=== PATIENT | male | born 1965 | race African-American/Black ===

== ENCOUNTER 2020-11-29 05:20 | Inpatient (IN) | payer MEDICAID ==
[~2020-11-29] VITALS: Ht 170.2 cm; Wt 74.8 kg
[2020-11-29] MEDS ORDERED: MAGNESIUM CITRATE 300ML SOLUTION PO ONE (06:30)
[2020-11-29] MEDS ORDERED: SODIUM CHLORIDE 0.9% 1,000 ML IV ONE ×2 (06:30→07:30)
[2020-11-29] MEDS ORDERED: MAGNESIUM HYDROXIDE 400MG/5ML 30ML UDC PO ONE (06:30)
[2020-11-29 06:55] LABS: BASOPHILS % 0.3 % (0.0-2.0); CHLORIDE 101 mEq/L (98-107); EOSINOPHILS % 0.3 % (0.0-5.0); HEMATOCRIT. 41.7 % (42.0-52.0); HEMOGLOBIN. 13.7 g/dL (14.0-18.0); LYMPHOCYTES % 15.4 % (20.0-50.0); MEAN CORPUSCULAR HEMOGLOBIN 29.1 pg (28.0-32.0); MEAN CORPUSCULAR VOLUME 88.3 fL (80.0-94.0); MEAN PLATELET VOLUME 9.2 fl (7.4-10.4); MONOCYTES % 9.6 % (2.0-8.0); NEUTROPHILS % 74.4 % (40.0-76.0); PLATELET 164 x1000/uL (130-400); RED BLOOD CELL COUNT 4.72 mill/uL (4.7-6.1); RED CELL DISTRIBUTION WIDTH 14.6 % (11.6-14.6)
[2020-11-29 07:06] LABS: PROTHROMBIN TIME 60.9 sec (9.6-11.0)
[2020-11-29 07:17] LABS: INR 6.6
[2020-11-29] MEDS ORDERED: NA PHOS,M-B/NA PHOS,DI-BA ENEMA 118ML PR ONE (07:30)
[2020-11-29] MEDS ORDERED: ACETAMINOPHEN 325MG TABLET PO PRN (12:45)
[2020-11-29] MEDS ORDERED: ONDANSETRON HCL 4MG/2ML INJ IV PRN (12:45)
[2020-11-29] MEDS ORDERED: DIPHENHYDRAMINE 50MG/ML VIAL IV PRN (12:45)
[2020-11-29] MEDS ORDERED: CLONIDINE 0.1MG TABLET PO PRN (12:45)
[2020-11-29] MEDS ORDERED: IPRATROPIUM/ALBUTEROL 0.5-3(2.5)MG/3ML NEB HHN PRN (12:45)
[2020-11-29] MEDS: SODIUM CHLORIDE 0.9% 1,000 ML IV SCH (13:43)
[2020-11-29] MEDS: MORPHINE SULFATE 2 MG/ML CPJ (NOT FOR IM USE) IV PRN ×2 (13:44→20:46)
[2020-11-29 15:33] VITALS: BP 146/90
[2020-11-29] MEDS ORDERED: CARV3.1242 PO (15:53)
[2020-11-29] MEDS ORDERED: FURO40TA5 PO (15:53)
[2020-11-29] MEDS ORDERED: ATOR10TA69 PO (15:53)
[2020-11-29] MEDS ORDERED: SPIR25TA6 PO (15:53)
[2020-11-29] MEDS ORDERED: WARF6TAB48 PO (15:53)
[2020-11-29] MEDS ORDERED: LISI20TA31 PO (15:53)
[2020-11-29] MEDS ORDERED: WARF4TAB71 PO (15:53)
[2020-11-29 16:00] VITALS: BP 119/68
[2020-11-29] MEDS: FUROSEMIDE 40MG TABLET PO SCH (17:24)
[2020-11-29] MEDS: ATORVASTATIN CALCIUM 10MG TABLET PO SCH (17:24)
[2020-11-29] MEDS: CARVEDILOL 3.125 MG TABLET PO SCH (17:24)
[2020-11-29 18:27] LABS: CLARITY URINE CLEAR (CLEAR); COLOR URINE YELLOW (YELLOW); KETONES URINE NEGATIVE (NEGATIVE); LEUKOCYTE ESTERASE URINE 1+ (NEGATIVE); NITRITE URINE NEGATIVE (NEGATIVE); OCCULT BLOOD URINE NEGATIVE (NEGATIVE); PROTEIN URINE NEGATIVE (NEGATIVE); SPECIFIC GRAVITY URINE 1.019 (1.005-1.030)
[2020-11-29 20:00] VITALS: BP 121/76
[2020-11-29] MEDS: LISINOPRIL 20MG TABLET PO SCH (20:45)
[2020-11-30] VITALS: BP 109/67
[2020-11-30] MEDS: SODIUM CHLORIDE 0.9% 1,000 ML IV SCH ×2 (00:44→14:09)
[2020-11-30] MEDS: MORPHINE SULFATE 2 MG/ML CPJ (NOT FOR IM USE) IV PRN ×5 (01:11→22:32)
[2020-11-30 04:00] VITALS: BP 122/60
[2020-11-30] MEDS: FUROSEMIDE 40MG TABLET PO SCH ×2 (06:16→17:45)
[2020-11-30] MEDS: GABAPENTIN 300MG CAPSULE PO SCH ×3 (06:16→21:19)
[2020-11-30 06:35] LABS: BASOPHILS % 0.3 % (0.0-2.0); EOSINOPHILS % 1.6 % (0.0-5.0); HEMATOCRIT. 40.1 % (42.0-52.0); HEMOGLOBIN. 13.1 g/dL (14.0-18.0); LYMPHOCYTES % 27.3 % (20.0-50.0); MEAN CORPUSCULAR HEMOGLOBIN 28.5 pg (28.0-32.0); MEAN CORPUSCULAR VOLUME 87.1 fL (80.0-94.0); MEAN PLATELET VOLUME 9.5 fl (7.4-10.4); MONOCYTES % 9.4 % (2.0-8.0); NEUTROPHILS % 61.4 % (40.0-76.0); PLATELET 140 x1000/uL (130-400); RED CELL DISTRIBUTION WIDTH 14.4 % (11.6-14.6)
[2020-11-30 06:52] LABS: PARTIAL THROMBOPLASTIN TIME 50.4 sec (23.4-31.0)
[2020-11-30 07:22] LABS: INR 4.1
[2020-11-30 07:24] LABS: CHLORIDE 105 mEq/L (98-107)
[2020-11-30 07:32] LABS: HDL CHOLESTEROL 56 mg/dL (40-59)
[2020-11-30 07:33] LABS: LDL CHOLESTEROL 62 mg/dL (5-100)
[2020-11-30 08:00] VITALS: BP 105/50
[2020-11-30] MEDS: BISACODYL 10MG SUPP PR SCH (08:53)
[2020-11-30] MEDS: ATORVASTATIN CALCIUM 10MG TABLET PO SCH ×2 (08:53→17:45)
[2020-11-30] MEDS: SPIRONOLACTONE 25MG TABLET PO SCH (08:53)
[2020-11-30] MEDS: CARVEDILOL 3.125 MG TABLET PO SCH ×2 (08:53→17:00)
[2020-11-30] MEDS: NA PHOS,M-B/NA PHOS,DI-BA ENEMA 118ML PR SCH (08:54)
[2020-11-30] MEDS: CEFTRIAXONE 1,000 MG in DEXTROSE 5% WATER 50 ML IV SCH (11:00)
[2020-11-30 11:56] VITALS: BP 105/59
[2020-11-30 16:00] VITALS: BP 114/60
[2020-11-30 20:00] VITALS: BP 116/64
[2020-11-30] MEDS ORDERED: DOCUSATE SODIUM 250MG CAPSULE PO PRN (21:15)
[2020-11-30] MEDS: LISINOPRIL 20MG TABLET PO SCH (21:19)
[2020-12-01] VITALS: BP 117/63
[2020-12-01] MEDS: SODIUM CHLORIDE 0.9% 1,000 ML IV SCH ×2 (01:58→14:20)
[2020-12-01] MEDS: MORPHINE SULFATE 2 MG/ML CPJ (NOT FOR IM USE) IV PRN ×5 (02:39→22:51)
[2020-12-01 04:00] VITALS: BP 109/60
[2020-12-01] MEDS: FUROSEMIDE 40MG TABLET PO SCH ×2 (05:51→17:13)
[2020-12-01] MEDS: GABAPENTIN 300MG CAPSULE PO SCH ×3 (05:51→22:52)
[2020-12-01 08:00] VITALS: BP 107/55
[2020-12-01] MEDS: NA PHOS,M-B/NA PHOS,DI-BA ENEMA 118ML PR SCH (08:10)
[2020-12-01] MEDS: BISACODYL 10MG SUPP PR SCH (08:10)
[2020-12-01] MEDS: ATORVASTATIN CALCIUM 10MG TABLET PO SCH ×2 (08:10→17:13)
[2020-12-01 08:39] LABS: BASOPHILS % 0.4 % (0.0-2.0); EOSINOPHILS % 2.7 % (0.0-5.0); HEMATOCRIT. 38.7 % (42.0-52.0); HEMOGLOBIN. 12.7 g/dL (14.0-18.0); INR 2.9; LYMPHOCYTES % 26.2 % (20.0-50.0); MEAN CORPUSCULAR HEMOGLOBIN 28.8 pg (28.0-32.0); MEAN PLATELET VOLUME 9.5 fl (7.4-10.4); MONOCYTES % 10.1 % (2.0-8.0); NEUTROPHILS % 60.6 % (40.0-76.0); PLATELET 138 x1000/uL (130-400); PROTHROMBIN TIME 28.5 sec (9.6-11.0); RED CELL DISTRIBUTION WIDTH 14.3 % (11.6-14.6)
[2020-12-01] MEDS: CARVEDILOL 3.125 MG TABLET PO SCH ×2 (08:40→17:13)
[2020-12-01] MEDS: SPIRONOLACTONE 25MG TABLET PO SCH (08:41)
[2020-12-01 09:02] LABS: CHLORIDE 107 mEq/L (98-107)
[2020-12-01] MEDS: CEFTRIAXONE 1,000 MG in DEXTROSE 5% WATER 50 ML IV SCH (09:32)
[2020-12-01 12:00] VITALS: BP 128/74
[2020-12-01] MEDS ORDERED: POLYETHYLENE GLYCOL 3350 (17GM) 1 DOSE PACK PO NR (12:00)
[2020-12-01] MEDS ORDERED: GABA-532 PO (12:15)
[2020-12-01] MEDS ORDERED: POLY119P2 MT (12:15)
[2020-12-01] MEDS ORDERED: BISA10SU62 RC (12:15)
[2020-12-01 16:00] VITALS: BP 120/65
[2020-12-01 20:00] VITALS: BP 121/69
[2020-12-02] VITALS: BP 150/87
[2020-12-02] MEDS: MORPHINE SULFATE 2 MG/ML CPJ (NOT FOR IM USE) IV PRN ×2 (03:20→04:48)
[2020-12-02] MEDS: SODIUM CHLORIDE 0.9% 1,000 ML IV SCH (03:23)
[2020-12-02 04:00] VITALS: BP 134/85
[2020-12-02] MEDS: FUROSEMIDE 40MG TABLET PO SCH (05:53)
[2020-12-02] MEDS: GABAPENTIN 300MG CAPSULE PO SCH (05:53)
[2020-12-02 08:00] VITALS: BP 110/69
[2020-12-02] MEDS: BISACODYL 10MG SUPP PR SCH (09:00)
[2020-12-02] MEDS: CARVEDILOL 3.125 MG TABLET PO SCH (09:00)
[2020-12-02] MEDS: NA PHOS,M-B/NA PHOS,DI-BA ENEMA 118ML PR SCH (09:00)
[2020-12-02] MEDS: ATORVASTATIN CALCIUM 10MG TABLET PO SCH (09:01)
[2020-12-02] MEDS: SPIRONOLACTONE 25MG TABLET PO SCH (09:01)
== END 2020-12-02 09:55 | disposition home or self-care (01) | DRG 247 ==
LOC: ER 05:20 → 5WST 10:49 → ENRESERV 13:48 → CANRESERV 13:48 → ENRESERV 13:51
PROVIDERS: ADMIT Internal Medicine; ATTEND Internal Medicine
DX: K56.7 Ileus, unspecified (principal); K56.600 Partial intestinal obstruction, unspecified as to cause; N39.0 Urinary tract infection, site not specified; N31.9 Neuromuscular dysfunction of bladder, unspecified; K82.4 Cholesterolosis of gallbladder; D68.9 Coagulation defect, unspecified; E78.5 Hyperlipidemia, unspecified; G82.20 Paraplegia, unspecified; I11.0 Hypertensive heart disease with heart failure; I25.10 Atherosclerotic heart disease of native coronary artery without angina pectoris; I42.0 Dilated cardiomyopathy; K59.2 Neurogenic bowel, not elsewhere classified; N20.0 Calculus of kidney; T45.515A Adverse effect of anticoagulants, initial encounter; I47.2 Ventricular tachycardia; I50.22 Chronic systolic (congestive) heart failure; I82.512 Chronic embolism and thrombosis of left femoral vein; Z79.01 Long term (current) use of anticoagulants; Z87.440 Personal history of urinary (tract) infections; Z87.442 Personal history of urinary calculi; Z95.810 Presence of automatic (implantable) cardiac defibrillator; W34.00XA Accidental discharge from unspecified firearms or gun, initial encounter; Z83.3 Family history of diabetes mellitus; Z82.49 Family history of ischemic heart disease and other diseases of the circulatory system; Z79.899 Other long term (current) drug therapy; Y92.89 Other specified places as the place of occurrence of the external cause
CPT/HCPCS: 36415; 74018; 74176; 76705; 80048; 80053; 80061; 81003; 84443; 85025; 87077; 87186; 93005; 93306; 93970; 99285; J0696; J2270; J7030; J7060; A4315